=== PATIENT | female | born 1990 | race Caucasian/White ===

== ENCOUNTER 2023-06-24 13:24 | Emergency (ER) | payer OTHER, SELFPAY ==
[2023-06-24 14:01] LABS: Urine Albumin Negative (Neg - Trace); Urine Bilirubin Negative (Negative); Urine Character Clear (Clear); Urine Color Yellow; Urine Glucose Negative (Negative); Urine Ketone Negative (Negative); Urine Leukocyte Negative (Negative); Urine Nitrite Negative (Negative); Urine Occult Blood Negative (Negative); Urine Urobilinogen Negative (Neg - 1+)
--- NOTE | 2023-06-24 14:32 | ED.GENMED ---
History of Present Illness
General
Chief Complaint: Urinary Symptoms
Source: patient
Exam Limitations: none
Time Seen by Provider: 06/24/23 14:31
Nursing documentation reviewed up to this point in time: agreed with
Travel History
Have you had any contact with someone who has COVID-19?: No
Do you have any symptoms of coronavirus? Fever > 100 degrees, chills, cough, shortness of breath, sore throat, loss of taste or smell, muscle aches, or headache?: No
History of Present Illness
History of Present Illness:
33-year-old female states she has 'vaginal pressure [which she has had chronically], occasional burning in the vaginal opening, occasional flare ups of UTI symptoms.' Present with nausea, feeling bloated, feeling like she's not passing her urine
today, has to strain and only small amounts, yesterday she was going small amount frequently. Also 'I'm not passing' stool, 'feels like there is a blockage.' Today, developed pressure from just under ribs as well as her general abdominal pain.
Last bowel movement was this morning, small and hard.
She has a [facility] appointment with Dr. Cross in 1 month
She called her urologist and the nurse in the office told her she should come to the ER to get 'some kind of scan.' Has appointment with her urologist Dr. 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 Her EKG was normal at that visit and she is scheduled for an echo next month.
She takes no medication, she takes fish oil, multivitamin and probiotic
Past History
Past History
ED Past Medical History: None
ED Past Surgical History: Other ([place] teeth)
Social History
Tobacco: Non-smoker
Alcohol: Occasional
Personal:
Living: with family
Employment: Employed (Works from home)
Review of Systems
Review of Systems
Allergies reviewed?: Yes
All Other Systems: ROS reviewed and negative except as documented in HPI and ROS
Constitutional: Denies fever
Respiratory: Denies trouble breathing
Cardiac: Denies chest pain
ABD/GI: Reports abdominal pain, nausea and constipated; Denies vomiting, diarrhea, bloody stools or black stools
: Reports dysuria, frequency and difficulty voiding; Denies flank pain
Musculoskeletal: Reports no symptoms
Skin: Reports no symptoms
Neurological: Reports no symptoms
Phy Exam
Physical Exam
Physical Exam:
GENERAL: No acute distress. A&Ox3.
CONSTITUTIONAL: Afebrile.
EYES: Clear, conjunctivae normal
ENMT: moist mucus membranes, Pharynx nl
RESPIRATORY: Regular respirations, nonlabored, lungs clear.
CARDIOVASCULAR: Regular rate and rhythm, no murmurs, no rubs.
GI: Soft, generally mildly tender, normal BS
MUSCULOSKELETAL: Moves with ease. Well perfused.
SKIN: Warm, dry, pink
PSYCH: Normal mood and affect. Well kept, interactive and appropriate
NEUROLOGIC: Awake, alert and oriented. No focal neurological deficits
Course
Orders/Labs/Results
Orders:
Orders
06/24/23 13:49
Urinalysis Reflex To Culture Urgent
Date Specimen was Collected: 06/24/23
Time Specimen was Collected: 13:43
06/24/23 14:46
IV Insert/Care/Rem.- Treatment PRN
06/24/23 14:47
CT Abd/Pel (IV only)-DH only Urgent
Comment:
Reason For Exam: feels bloated, generalized abd pain
0.9% Sodium Chloride 1000 ml [Nss] 1,000 ml IV BOLUS
Test Result ONCE
06/24/23 15:14
Complete Blood Count/With Diff Urgent
Comprehensive Metabolic Panel Urgent
HCG, Serum Qualitative Screen Urgent
Lipase Urgent
Abnormal Lab Results
06/24/23
15:14
Glucose 107 H mg/dl
(70-99)
06/24/23 15:14
06/24/23 15:14
Vital Signs
Initial and Last Documented VS:
Initial Vital Signs
Temp Pulse Resp Pulse Ox
99.1 F 105 18 98
06/24/23 13:36 06/24/23 13:36 06/24/23 13:36 06/24/23 13:36
Last Documented Vital Signs
Temp Pulse Resp BP Pulse Ox
99.1 F 82 17 107/71 100
06/24/23 13:36 06/24/23 16:31 06/24/23 16:31 06/24/23 16:31 06/24/23 16:31
MDM/Problems Addressed
Differential Diagnosis Includes:
Urinary tract infection, colitis/diverticulitis
MDM/Problems Addressed:
33-year-old female states she has 'vaginal pressure [which she has had chronically], occasional burning in the vaginal opening, occasional flare ups of UTI symptoms.' Present with nausea, feeling bloated, feeling like she's not passing her urine
today, has to strain and only small amounts, yesterday she was going small amount frequently. Also 'I'm not passing' stool, 'feels like there is a blockage.' Today, developed pressure from just under ribs as well as her general abdominal pain.
Last bowel movement was this morning, small and hard.
She has a [facility] appointment with Dr. Cross in 1 month
She called her urologist and the nurse in the office told her she should come to the ER to get 'some kind of scan.' Has appointment with her urologist Dr. 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 Her EKG was normal at that visit and she is scheduled for an echo next month.
She takes no medication, she takes fish oil, multivitamin and probiotic
06/24/2023 1604 PM
CBC normal
CMP normal
hCG negative
UA normal
Case discussed with Helena Craig NP who will discharge pt if CT is neg
*Critical Care Note
Total Time (30-74mins, 75-104mins- exclusive of procedures): Not Applicable
ED Attending Note
-
Portions of this chart may have been created with voice recognition software.� Occasional wrong word or��sound alike� substitutions may have occurred due to the inherent limitations of voice recognition software.
Discharge Plan
Departure
Patient Disposition: Home (Routine Discharge)
Date of Disposition: 06/24/23
Time of Disposition: 17:21
Patient with high blood pressure during this ER visit?: No
Condition: Good
Discharge Problem:
Abdominal pain
Instructions: Abdominal Pain
Prescriptions:
No Action
Tablet
1 tab PO DAILY
Probiotic
1 tab PO DAILY
ibuprofen 600 MG tablet
600 mg PO Q4HPRN PRN (Reason: moderate pain/cramps) Qty: 90 0RF
Referrals:
Monique Renteria CRNP [Family Provider] -
Activity Restrictions/Additional Instructions:
All of your blood work, urine and abdominal CT scan are normal.
Nothing worrisome in your workup here today.
Interventions
Interventions:
*Risk Screen - Suicide Last Done: 06/24/23 13:36
*General Assessment Last Done: 06/24/23 13:36
*Neglect/Abuse Screening Last Done: 06/24/23 13:36
ED- Fall Risk Assessment Last Done: 06/24/23 15:18
*ED COVID-19 Vaccine History Last Done: 06/24/23 13:36
*Nursing Disposition Last Done: 06/24/23 17:37
ED-Female Genitourinary Assessment Last Done: 06/24/23 15:18
Discharge Date and Time
Discharge Date/Time: 06/24/23 17:38
[2023-06-24 15:05] VITALS: BMI 29.5
[2023-06-24] MEDS: NSS 1000 IV (15:15)
[2023-06-24 15:25] LABS: % Basophils 0.9 % (0-2); % Eosinophils 0.8 % (0-6); % Immature Granulocytes 0.4 % (0-0.5); % Lymphocytes 20.9 % (20.5-51.1); % Monocytes 5.7 % (1.7-9.3); % Neutrophils 71.3 % (42.2-75.2); Absolute Basophils 0.1 10^3/uL (0-0.2); Absolute Eosinophils 0.1 10^3/uL (0-0.7); Absolute Lymphocytes 1.6 10^3/uL (1.2-3.4); Absolute Monocytes 0.4 10^3/uL (0.1-0.6); Absolute Neutrophils 5.4 10^3/uL (1.4-6.5); Hematocrit 39.8 % (37.0-47.0); Hemoglobin 13.8 g/dL (12.0-16.0); Mean Corp Hgb Conc. 34.7 g/dL (33.0-37.0); Mean Corpuscular Hgb 29.9 pg (27.0-31.0); Mean Corpuscular Volume 86.3 fL (81.0-99.0); Mean Platelet Volume 9.3 fL (7.4-10.4); Nucleated Red Blood Cells % 0 %; Platelet Count 274 10^3/uL (130-400); Red Blood Cell Count 4.61 10^6/uL (4.20-5.40); Red Cell Dist. Width 11.9 % (11.5-14.5); White Blood Cell Count 7.5 10^3/uL (4.8-10.8)
[2023-06-24 15:53] LABS: ALT (SGPT) 22 U/L (0-35); AST (SGOT) 25 U/L (14-36); Albumin 4.4 g/dl (3.5-5.0); Alkaline Phosphatase 62 U/L (38-126); Blood Urea Nitrogen 14 mg/dl (7-17); Calcium 9.4 mg/dl (8.4-10.2); Carbon Dioxide 26 mmol/L (22-30); Chloride 105 mmol/L (98-107); Estimated Creatinine Clearance > 125 ml/min; Glucose 107 mg/dl (70-99); Lipase 141 U/L (23-300); Sodium 136 mmol/L (135-145); Total Bilirubin 0.8 mg/dl (0.2-1.3); Total Protein 7.4 g/dl (6.3-8.2); eGFR > 60.00
[2023-06-24 15:58] LABS: HCG, Serum Qualitative Screen Negative
[2023-06-24 16:31] VITALS: BP 107/71
== END 2023-06-24 17:38 | disposition home or self-care (01) ==
LOC: EMR 13:24
PROVIDERS: Emergency Medicine; Registered Nurse; EMERGENCY PHYSICIAN Emergency Medicine; FAMILY PHYSICIAN Nurse Practitioner
DX: R10.84 Generalized abdominal pain (principal); R14.0 Abdominal distension (gaseous); R11.0 Nausea; R00.2 Palpitations; R35.0 Frequency of micturition; K59.00 Constipation, unspecified; Z91.030 Bee allergy status
CPT/HCPCS: 99285; 74177; 80053; 81003; 83690; 84703; 85025; Q9967

== ENCOUNTER → 2023-12-12 11:15 | Outpatient (REF) | payer OTHER, SELFPAY | LOC: RAD 11:15 | PROVIDERS: ATTENDING PHYSICIAN Obstetrics & Gynecology; FAMILY PHYSICIAN Nurse Practitioner | DX: N83.201 Unspecified ovarian cyst, right side (principal) | CPT/HCPCS: 76830; 76856 ==

== ENCOUNTER → 2024-06-13 13:07 | Outpatient (REF) | payer OTHER, SELFPAY | LOC: RAD 13:07 | PROVIDERS: ATTENDING PHYSICIAN Nurse Practitioner | DX: J20.9 Acute bronchitis, unspecified (principal) | CPT/HCPCS: 71046 ==